=== PATIENT | female | born 1935 | race Caucasian/White ===

== ENCOUNTER 2017-10-21 23:26 | Emergency (ER) | payer OTHER ==
[~2017-10-21] VITALS: Ht 144.8 cm; Wt 46.8 kg
[~2017-10-21 23:26] MED LIST: ADVAIR 250/501 DISK IH; Advair HFA 115/21 IH; Ascorbic Acid,Ester- PO; BONIVA150 MG PO; CALCIUM + VITA1 EACH PO; CALCIUM 500 +1 EACH PO; CELEXA10 MG; CELEXA40 MG PO; Colace PO; Dulcolax PO; FISH OIL SOFTG1 EACH PO; Folvite PO; GLUCOPHAGE XR,500 MG PO; Glucophage PO; HYDROCHLOROTH12.5 M3 PO; HYDROCODON-ACE1 EAC7 PO; LISINOPRIL5 MG PO; METFORMIN HCL500 MG PO; MULTIVITAMIN1 EAC2 PO; Oscal 500 w/Vitamin PO; PROTONIX40 MG PO; Protonix PO; Senokot,Sennagen PO; THERAGRAN1 TABLET PO; Theragran PO; Tylenol Regular Stre PO; Vicodin,Norco 5/325 PO; Zestril,Prinivil PO; celeXA PO
[2017-10-22] MEDS ORDERED: HYDROCHLOROTHIA25 MG PO (01:53)
[2017-10-22] MEDS ORDERED: PROAIR HFA8.5 GM IH (01:53)
[2017-10-22] MEDS ORDERED: ALEVE220 MG PO (01:53)
[2017-10-22] MEDS ORDERED: BUSPAR7.5 MG PO (01:53)
[2017-10-22] MEDS ORDERED: SINGULAIR10 MG PO (01:53)
[2017-10-22] MEDS ORDERED: COLACE100 MG PO (01:54)
[2017-10-22 02:42] LABS: PTT 28.6 SEC (25-37)
[2017-10-22 02:45] LABS: BASOPHIL (%) 0.5 % (0-1); BASOPHIL COUNT 0.1 K/uL (0-0.1); EOSINOPHIL (%) 0.3 % (0-5); HEMATOCRIT 32.4 % (36.0-46.0); IMMATURE GRANULOCYTE (%) 0.4 % (0.0-0.7); LYMPHOCYTE (%) 13.1 % (15-42); LYMPHOCYTE COUNT 1.3 K/uL (1.0-2.8); MCH 32.1 PG (29.0-34.0); MCV 94.5 FL (83-99); MONOCYTE COUNT 0.9 K/uL (0-0.8); NEUTROPHIL (%) 76.7 % (45-76); NEUTROPHIL COUNT 7.6 K/uL (1.8-6.4); PLATELET COUNT 224 K/uL (156-360); RBC DIS.WIDTH-SD 45.1 % (39-53); RED BLOOD COUNT 3.43 M/uL (3.80-5.20)
[2017-10-22 02:51] LABS: CHLORIDE 102 mEq/L (99-109); POTASSIUM 4.4 mEq/L (3.7-5.4); SODIUM 138 mEq/L (136-147)
[2017-10-22 02:53] LABS: GLUCOSE 142 mg/dL (70-99)
[2017-10-22 02:57] LABS: CREATININE 0.8 mg/dL (0.6-1.3); GFR ESTIMATE (CALCULATED) > 59 mL/min/; UREA NITROGEN (BUN) 20 mg/dL (9-23)
[2017-10-22 03:05] LABS: TROP-I INTERPRETATION NEGATIVE; TROPONIN-I < 0.01 ng/mL (0.0-0.30)
[2017-10-22 05:00] VITALS: BP 115/100
== END 2017-10-22 05:39 | disposition short-term general hospital (02) ==
LOC: EME 23:26
PROVIDERS: Emergency Medicine
DX: S82.142A Displaced bicondylar fracture of left tibia, initial encounter for closed fracture (principal); S82.832A Other fracture of upper and lower end of left fibula, initial encounter for closed fracture; W18.30XA Fall on same level, unspecified, initial encounter; S00.83XA Contusion of other part of head, initial encounter; E11.9 Type 2 diabetes mellitus without complications; I44.7 Left bundle-branch block, unspecified; Z87.891 Personal history of nicotine dependence
CPT/HCPCS: 70450; 71045; 73590; 73700; 80048; 84484; 85025; 85610; 85730; 93005; 99281; 99285; J2270; J2405; J3010

== ENCOUNTER 2018-03-28 17:22 | Emergency (ER) | payer OTHER ==
[~2018-03-28] VITALS: Ht 147.3 cm; Wt 49.2 kg
[~2018-03-28 17:22] MED LIST changes: +ALEVE220 MG PO; +BUSPAR7.5 MG PO; +COLACE100 MG PO; +HYDROCHLOROTHIA25 MG PO; +PROAIR HFA8.5 GM IH; +SINGULAIR10 MG PO
[2018-03-28 21:35] VITALS: BP 173/74
== END 2018-03-28 21:38 | disposition home or self-care (01) ==
LOC: RME 17:22 → EME 17:22 → RME 21:38
DX: S20.229A Contusion of unspecified back wall of thorax, initial encounter (principal); W01.0XXA Fall on same level from slipping, tripping and stumbling without subsequent striking against object, initial encounter; Y92.199 Unspecified place in other specified residential institution as the place of occurrence of the external cause; I10 Essential (primary) hypertension; E11.9 Type 2 diabetes mellitus without complications; F32.9 Major depressive disorder, single episode, unspecified; Z79.82 Long term (current) use of aspirin; Z79.84 Long term (current) use of oral hypoglycemic drugs; Z87.891 Personal history of nicotine dependence
CPT/HCPCS: 70450; 72070; 99281; 99285